=== PATIENT | female | born 1965 | race Caucasian/White ===

== ENCOUNTER 2017-03-29 08:34 | Day surgery (SDC) | payer OTHER ==
[2017-03-24 06:40] VITALS: BMI 28.2
[2017-03-29 09:08] VITALS: RESP 18
[2017-03-29] MEDS ORDERED: Propofol 10 mg/ml Inj (20 ML) ONE (11:13)
[2017-03-29] MEDS ORDERED: Sodium Chloride 0.9% 1,000 ML IV SCH (11:30)
[2017-03-29 12:49] VITALS: BP 106/69; PULSE 74; TEMP 97.7; O2SAT 99
== END 2017-03-29 13:07 | disposition home or self-care (01) ==
LOC: ENDO 08:34
PROVIDERS: ATTEND Internal Medicine Gastroenterology
DX: Z12.11 Encounter for screening for malignant neoplasm of colon (principal); K64.8 Other hemorrhoids; E03.9 Hypothyroidism, unspecified; E78.00 Pure hypercholesterolemia, unspecified
CPT/HCPCS: 45378; J2704; J7040